=== PATIENT | female | born 1995 | race African-American/Black ===

== ENCOUNTER 2021-06-06 11:57 | Emergency (ER) | payer MEDICAID ==
[~2021-06-06] VITALS: Ht 160 cm; Wt 97.7 kg
[2021-06-06] MEDS ORDERED: IBUPROFEN 400MG TABLET PO ONE (12:30)
[2021-06-06] MEDS ORDERED: ACETAMINOPHEN 325MG TABLET PO ONE (12:30)
[2021-06-06] MEDS ORDERED: DIPHENHYDRAMINE 50MG/ML VIAL IV ONE (12:45)
[2021-06-06] MEDS ORDERED: SODIUM CHLORIDE 0.9% 1,000 ML IV ONE (12:45)
[2021-06-06] MEDS ORDERED: METOCLOPRAMIDE HCL 10MG/2ML VIAL IV ONE (12:45)
[2021-06-06 14:24] LABS: CHLORIDE 108 mEq/L (98-107)
[2021-06-06 14:25] LABS: HCG SCREEN NEGATIVE
[2021-06-06 14:27] LABS: HEMATOCRIT. 41.5 % (36.0-48.0); HEMOGLOBIN. 13.6 g/dL (12.0-16.0); MEAN CORPUSCULAR HEMOGLOBIN 28.2 pg (28.0-32.0); MEAN CORPUSCULAR VOLUME 86.4 fL (81.0-99.0); PLATELET 263 x1000/uL (130-400); RED BLOOD CELL COUNT 4.81 mill/uL (4.2-5.4); RED CELL DISTRIBUTION WIDTH 14.1 % (11.6-14.6)
[2021-06-06 14:29] LABS: CLARITY URINE CLEAR (CLEAR); COLOR URINE YELLOW (YELLOW); KETONES URINE NEGATIVE (NEGATIVE); LEUKOCYTE ESTERASE URINE TRACE (NEGATIVE); NITRITE URINE NEGATIVE (NEGATIVE); OCCULT BLOOD URINE 1+ (NEGATIVE); PROTEIN URINE NEGATIVE (NEGATIVE); SPECIFIC GRAVITY URINE 1.014 (1.005-1.030)
[2021-06-06 14:48] LABS: PLATELET ESTIMATE NORMAL
[2021-06-06] MEDS ORDERED: IBUP-2028 MT (15:21)
[2021-06-06 15:50] VITALS: BP 132/75
== END 2021-06-06 15:51 | disposition home or self-care (01) ==
LOC: ER 12:07
DX: U07.1 COVID-19 (principal); G43.909 Migraine, unspecified, not intractable, without status migrainosus; M79.10 Myalgia, unspecified site; M54.50 Low back pain, unspecified
CPT/HCPCS: 36415; 80053; 81003; 84703; 85025; 96361; 96374; 96375; 99284; C9803; J1200; J2765; J7030; U0003; U0005